=== PATIENT | female | born 2005 | race Caucasian/White ===

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

== ENCOUNTER 2025-01-16 12:00 | Emergency (ER) | payer MEDICAID, SELFPAY ==
--- OUTSIDE RECORDS SUMMARY | 2025-01-16 12:03 | XMS_ITS | Encounter Summary ---
Author Organization [facility] Address [address] [place] [address] Phone Care Team Providers Care Soil Chemist Name Role Phone Provider, None Primary Care Provider Unavailabl e Encounter Details Date Type Department Care Team (Late st Contact Info) Description 11/11/2024 Lab Requisition [facility] [address] [place] [address] Carlos Eduardo Tomlin, PAC [address] [place] [address] Encounter for pre-employment examination Social History Tobacco Use Types Packs/Day Years Used Date Smoking Tobacco: Never Assessed Comments Unknown Sex and Gender Information Value Date Recorded Sex Assigned at Not on file Legal Sex Female 10:57 PM CDT Gender Identity Not on file Sexual Orientation Not on file documented as of this encounter Plan of Treatment Not on file documented as of this encounter Procedures Procedure Name Priority Date/Time Associated Diagnosis Comments QUANTIFERON-TB GOLD PLUS Routine 11/11/2024 10:00 AM [employer] Encounter for pre-employment examination documented in this encounter Results * QUANTIFERON-TB GOLD PLUS (11/11/2024 10:00 AM 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 [employer]) NIL CONTROL 0.00 <8.01 IU/mL 11/13/2024 11:34 AM INSPECTOR [employer]SE [facility] TB ANTIGEN 1 0.00 <0.35 IU/mL 11/13/2024 11:34 AM INSPECTOR [employer]SE [facility] TB ANTIGEN 2 0.00 <0.35 IU/mL 11/13/2024 11:34 AM [facility] MITOGEN CONTROL 10.00 >0.49 IU/mL 11/13/20 11:34 AM [facility] INTEPRETATION TB NEGATIVE NEGATIVE, NEGATIVE (TB antigen response less than 25% of internal negative control value) 11/13/2024 11:34 AM [facility] Comment:No immune response t o Mycobacterium tuberculosis antigens was noted. M. tuberculosis infection unlikely. Blood No Phlebotomy Charged / Unknown 11/11/2024 10:00 AM INS[employer]OR [employer] 11/11/2024 2:57 PM [employer] Narrative [facility] - 11/13/2024 11:34 AM INSPECTOR [employer] A POSITIVE QUANTIFERON-TB GOLD PLUS RESULT SHOULD NOT BE THE SOLE OR DEFINITIVE BASIS FOR DETERMINING INFECTION WITH M.TUBERCULOSIS. Diagnosing or excluding tuberculosis disease, and assessing the probability of LTBI, requires a combination of epidemiological, historical, medical and diagnostic findings (e.g., acid fast bacilli (AFB) smear and culture, chest xray) that should be taken into account when interpreting QFT-Plus results. Furthermore, the magnitude of the measured gamma interferon level cannot be correlated to stage or degree of infection, level of immune responsiveness, or likelihood for progression to active disease. The Nil control adjusts for background (e.g., elevated levels of circulating gamma interferon or presence of heterophile antibodies). The Mitogen control serves as an internal positive control and verifies each specimen tested can produce a gamma interferon response. Low mitogen may occur with insufficient lymphocytes, reduced lymphocyte activity due to improper specimen handling, filling/mixing of the mitogen tube, or inability of the patient's lymphocytes to generate gamma interferon. Infection with other Mycobacteria, including M. kansasii, M. szulgai, and M. marinum, may cause false positive results. A negative QuantiFERON-TB Gold Plus result does not preclude the possibility of M. tuberculosis infection or tuberculosis disease: false negative results can be due to incorrect blood sample collection/ improper handling of the specimen, stage of infection (e.g., specimen obtained prior to the development of cellular immune response), co-morbid conditions which affect immune function, or other individual immunological factors. The minimum number of lymphocytes required for a reliable test has not been established and may also be variable. Diagnostic testing for Mycobacterium tuberculosis using Interferon Gamma Release Assays should follow applicable published guidelines, including when testing in populations such as children, women, and HIV-infected or otherwise immunocompromised individuals. https://www.cdc.gov/tb/publications/guidelines/testing.htm us Carlos Eduardo Tomlin [facility] IMMUNOLOGY ORDERABLES Final Result [facility] [address] [place] [address], documented in this encounter Visit Diagnoses Diagnosis Encounter for pre-employment examination Health examination of defined subpopulation documented in this encounter Care Teams Soil Chemist Relationship Specialty Start Date End Date Provider, None [place] PCP - General 11/11/24 documented as of this encounter
--- OUTSIDE RECORDS SUMMARY | 2025-01-16 12:03 | XMS_ITS | Clinical Summary ---
Author Organization [facility] Address [address] [place] [address] Phone Care Team Providers Care Resort Host Name Role Phone Provider, None Primary Care Provider Unavailabl e Allergies No known active allergies Medications predniSONE (DELTASONE) 50 MG Tablet Take 1 Tablet by mouth daily. 5 Tablet 5 Active albuterol 108 (90 Base) MCG/ACT Aerosol Solution take 2 Puffs by inhalation every 6 hours as needed for Wheezing. 8 g 5 Active ondansetron (ZOFRAN-ODT) 4 MG TABLET DISPERSIBLEInd ications:Nause a and Vomiting Take 1 Tablet by mouth every 8 hours as needed for Nausea - 1st line. Indications: Nausea and Vomiting 10 Tablet 5 Active albuterol (PROVENTIL, VENTOLIN) (2.5 MG/3ML) 0.083% Nebulizer Soln 3 mL by Nebulization route every 6 hours as needed for Wheezing or Shortness of Breath for up to 30 days. 75 mL 5 01/15/20 25 Encounters Date Type Department Care Team Description 12/16/2024 8:12 PM SAXOPHONE ASSEMBLER - 12/16/2024 9:32 PM SAXOPHONE ASSEMBLER [facility] [address] [place] [address] Erica Rosa, MONUMENTAL STONEMASON, SCHOOL LEADER Anxiety Discharge Disposition: Discharged to home or Selfcare 12/16/2024 Travel 11/11/2024 Lab Requisition [facility] [address] [place] [address] Carlos Eduardo Tomlin, PAC Encounter for pre-employment examination 11/11/2024 Travel from Last 3 Months Social History Tobacco Use Types Packs/Day Years Used Date Smoking Tobacco: Unknown Smokeless Tobacco: Never Tobacco Cessation:Counseling Given: Not Answered Comments Unknown Sex and Gender Information Value Date Recorded Sex Assigned at Not on file Legal Sex Female 10:57 PM CDT Gender Identity Not on file Sexual Orientation Not on file Last Filed Vital Signs Vital Sign Reading Time Taken Comments Blood Pressure 128/101 12/16/2024 9:31 PM SAXOPHONE ASSEMBLER Pulse 104 12/16/2024 9:31 PM SAXOPHONE ASSEMBLER Temperature 36.8 C (98.3 F) 12/16/2024 8:35 PM SAXOPHONE ASSEMBLER Respiratory Rate 16 12/16/2024 9:31 PM SAXOPHONE ASSEMBLER Oxygen Saturation 99% 12/16/2024 9:31 PM SAXOPHONE ASSEMBLER Inhaled Oxygen Concentration - - Weight - - Height 160 cm (5' 3 ) 12/16/2024 8:16 PM SAXOPHONE ASSEMBLER Body Mass Index - - Plan of Treatment Health Maintenance Due Date Last Done Comments Hepatitis C Virus (HCV) Screening 2005 Meningococcal B Immunization (1 of 2 - Standard) 2021 Influenza Immunization (#1) 2024 12/0 07/2023, 10/04/2021, 09/14/2008 SARS-COV-2 Immunization ( season) 2024 12/26/2021, 05/30/2021, 05/04/2021 Respiratory Syncytial Virus (RSV) Immunization (Adult) (1 - 1-dose 75+ series) 2080 Pneumococcal Immunization Combined Aged Out 07/25/2006, 04/11/2006, 02/22/2006 No longer eligible based on patient's age to complete this topic Hepatitis A Immunization Discontinued 03/22/2010, 09/01 Measles Mumps Rubella (MMR) Immunization Discontinued 03/22/2010, 09/14/2008 Polio (IPV) Immunization Discontinued 010, 07/25/2006, 04/11/2006, Additional history exists Varicella Immunization Discontinued 03/22/2010, 2007 Meningococcal Immunization (ACWY) Aged Out 07/15/2017 No longer eligible based on patient's age to complete this topic Hepatitis B Immunization Completed 021, 04/11/2006, 02/22/2006, Additional history exists Human Papillomavirus (HPV) Immunization Completed 12/22/2020, 07/15/2017 DTaP/Tdap/Td Immunization Discontinued 2022, 07/15/2017, 03/22/2010, Additional history exists TdaP Immunization Completed 11/04/2023, 07/15/2017 Rotavirus Immunization Aged Out No lo nger eligible based on patient's age to complete this topic Procedures Procedure Name Priority Date/Time Associated Diagnosis Comments AEROSOL NEBULIZER-INITIAL STAT 12/16/2024 8:27 PM SAXOPHONE ASSEMBLER XR CHEST SINGLE VIEW PORTABLE STAT 12/16/2024 8:23 PM SAXOPHONE ASSEMBLER QUANTIFERON-TB GOLD PLUS Routine 11/11/2024 10:00 AM SAXOPHONE ASSEMBLER Encounter for pre-employment examination from Last 3 Months Results * XR CHEST SINGLE VIEW PORTABLE (12/16/2024 8:23 PM SAXOPHONE ASSEMBLER) Anatomical Region Laterality Modality Chest N/A Digital Radiogra phy 12/16/2024 8:42 PM SAXOPHONE ASSEMBLER Impressions 12/16/2024 8:45 PM SAXOPHONE ASSEMBLER IMPRESSION: No acute cardiopulmonary abnormality. 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 pt also report productive cough and wheezing. TECHNIQUE: Single radiographic view(s) of the chest. COMPARISON: 06/14/2011 FINDINGS: LUNGS: Allowing for overlying soft tissues, the lungs appear grossly clear. No consolidation or effusion is seen. HEART/MEDIASTINUM: Cardiac silhouette normal in size. Mediastinal and hilar contours appear normal. LINES/TUBES: None. BONES: No acute osseous abnormality. THIS IS AN ELECTRONICALLY VERIFIED FINAL REPORT 12/16/2024 8:42 PM - Electronically signed by Faustino Butler M.D. 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 pt also report productive cough and wheezing. TECHNIQUE: Single radiographic view(s) of the chest. COMPARISON: 06/14/2011 FINDINGS: LUNGS: Allowing for overlying soft tissues, the lungs appear grossly clear. No consolidation or effusion is seen. HEART/MEDIASTINUM: Cardiac silhouette normal in size. Mediastinal and hilar contours appear normal. LINES/TUBES: None. BONES: No acute osseous abnormality. THIS IS AN ELECTRONICALLY VERIFIED FINAL REPORT 12/16/2024 8:42 PM - Electronically signed by Faustino Butler M.D. KH: XIMENA Report ID: [id number] Reading Location: [id number] IMPRESSION: No acute cardiopulmonary abnormality. Erica Rosa MONUMENTAL STONEMASON, SCHOOL LEADER IMG DIAGNOSTIC ORDERA BLES Final Result * QUANTIFERON-TB GOLD PLUS (11/11/2024 10:00 AM SAXOPHONE ASSEMBLER) NIL CONTROL 0.00 <8.01 IU/mL 11/13/2024 11:34 AM SAXOPHONE ASSEMBLER [facility] TB ANTIGEN 1 0.00 <0.35 IU/mL 11/13/2024 11:34 AM [facility] TB ANTIGEN 2 0.00 <0.35 IU/mL 11/13/2024 11:34 AM [facility] MITOGEN CONTROL 10.00 >0.49 IU/mL 11/13/20 11:34 AM SAXOPHONE ASSEMBLER [facility] INTEPRETATION TB NEGATIVE NEGATIVE, NEGATIVE (TB antigen response less than 25% of internal negative control value) 11/13/2024 11:34 AM [facility] Comment:No immune response t o Mycobacterium tuberculosis antigens was noted. M. tuberculosis infection unlikely. Blood No Phlebotomy Charged / Unknown 11/11/2024 10:00 AM SAXOPHONE ASSEMBLER 11/11/2024 2:57 PM SAXOPHONE ASSEMBLER Narrative [facility] - 11/13/2024 11:34 AM SAXOPHONE ASSEMBLER A POSITIVE QUANTIFERON-TB GOLD PLUS RESULT SHOULD [...] and HIV-infected or otherwise immunocompromised individuals. https://www.cdc.gov/tb/publications/guidelines/testing.htm Carlos Eduardo Tomlin [facility] IMMUNOLOGY ORDERABLES Final Result [facility] [address] [place] [address], [place] from Last 3 Months Insurance MEDICAID [place] * Guarantor: [facility] Account Type Relation to Patient Date of Phone Billing Address Institutional Other [address] [place] [address] Care Teams Resort Host Relationship Specialty Start Date End Date Provider, None [place] PCP - General 11/11/24
[2025-01-16 12:25] VITALS: BP 107/66; PULSE 79; RESP 20; TEMP 37.3; O2SAT 100
--- NOTE | 2025-01-16 14:25 | ED.GENADULT ---
HPI - General Adult General Chief complaint: Upper Respiratory Infection Stated complaint: Cough, Sore Throat Source: patient Mode of arrival: ambulatory Limitations: no limitations History of Present Illness HPI narrative: Patient presents for evaluation of sick symptoms since yesterday. Symptoms include hot flashes, chills, sore throat, generalized body aches, nausea and vomiting. She denies any shortness of breath or diarrhea. She indicates she has been exposed to influenza at work. She tried taking some nbyu-qfa-kuumavy cough cold medicine with minimal improvement thereafter. Related Data Allergies Allergy/AdvReac Type Severity Reaction Status Date / Time No Known Allergies Allergy Verified 01/16/25 12:55 Review of Systems Review of Systems: CONSTITUTIONAL: Reports hot flashes and chills. EYES: Denies visual changes, redness, or discharge. ENT: Reports sore throat and bilateral otalgia. Denies rhinorrhea, or congestion CARDIOVASCULAR: Denies chest pain, palpitations, or edema. RESPIRATORY: Reports cough. Denies shortness of breath. GASTROINTESTINAL: Reports nausea and vomiting. GENITOURINARY: Denies dysuria or hematuria. SKIN: Denies rash or itching. MUSCULOSKELETAL: Reports generalized body aches. NEUROLOGIC: Reports headache. Numbness, dizziness, or weakness. PSYCHIATRIC: Denies anxiety or depression. PMFSH Past Medical History Medical History No pertinent past medical history Surgical History Surgical History No pertinent past surgical history Family History Family History Mother Family history non-contributory Social History Social History Gender identity (if verbalized by the patient): Female Spiritual care concerns: No Exam Narrative: GENERAL: Well-appearing, well-nourished, and in no acute distress. HEAD: Normocephalic, atraumatic. EYES: PERRLA and EOMI. ENT: Nares clear, no rhinorrhea or epistaxis. Mucous membranes moist. Oropharynx without tonsillar hypertrophy exudate or other lesions. Bilateral TMs are erythematous NECK: Supple. No adenopathy or masses. No carotid bruits or JVD CHEST: Clear to auscultation. No respiratory distress. No wheezes rales or rhonchi HEART: Regular rate and rhythm. No murmur heard. Normal peripheral pulses. ABDOMEN: Soft, nontender, nondistended, normal active bowel sounds. EXTREMITIES: Normal range of motion. No edema. SKIN: Warm, dry, no rash. NEURO: No focal deficits. Alert and oriented x3. PSYCH: Normal mood and affect. Course Course Emergency Course: This is a 19-year-old female presented for evaluation of sick symptoms. Influenza A positive. Will treat with Tamiflu. She also has evidence of otitis media on exam. She indicates she has had ear infections in the past when she has had other infections. Will tx with augmentin. Increase hydration. OTC agents for symptom management. Follow up with primary provider. Go to the ER for worsening symptoms. Patient in agreement with plan of care. Level of Care: Express Care Visit Vital Signs Vital signs: Vital Signs Temperature 37.3 C 01/16/25 12: Pulse Rate 79 01/16/25 12:25 Respiratory Rate 20 01/16/25 12:25 Blood Pressure 107/66 01/16/25 12:25 Pulse Oximetry 100 01/16/25 12:25 Oxygen Delivery Room Air 01/16/25 12: Temperature 37.3 C 01/16/25 12:25 Pulse Rate 79 01/16/25 12:25 Respiratory Rate 20 01/16/25 12:25 Blood Pressure 107/66 01/16/25 12: Pulse Oximetry 100 01/16/25 12:25 Oxygen Delivery Room Air 01/16/25 12:25 Medical Decision Making Vital Signs Vital Signs: Vital Signs Temperature 37.3 C 01/16/25 12:25 Pulse Rate 79 01/16/25 12:25 Respiratory Rate 20 01/16/25 12:25 Blood Pressure 107/66 01/16/25 12:25 Pulse Oximetry 100 01/16/25 12:25 Oxygen Delivery Room Air 01/16/25 12:25 Temperature 37.3 C 01/16/25 12:25 Pulse Rate 79 01/16/25 12:25 Respiratory Rate 20 01/16/25 12:25 Blood Pressure 107/66 01/16/25 12:25 Pulse Oximetry 100 01/16/25 12:25 Oxygen Delivery Room Air 01/16/25 12:25 Discharge Plan Discharge Clinical Impression: Influenza A, Otitis media Patient Disposition: Home, Self-Care Condition: Stable Instructions: Antibiotic Form, Influenza (ED), Ear Infection (GEN) Patient Language: Czech Prescriptions: New oseltamivir [Tamiflu] 75 mg capsule 75 mg PO Q12H 5 Days Qty: 10 0RF amoxicillin-pot clavulanate 875-125 mg tablet 1 tablet PO Q12H Qty: 20 0RF Follow-up/Referrals: Ki Arthur MD [Physician] - Stand Alone Forms: Work/School Release IP Time of Disposition: 13:54
[2025-01-16 20:07] LABS: EDCOVIDSCREEN Negative (Negative); EDINFLUASCREEN Positive (Negative); EDINFLUBSCREEN Negative (Negative)
== END 2025-01-16 13:58 | disposition home or self-care (01) ==
PROVIDERS: Emergency Provider Nurse Practitioner
DX: J10.1 Influenza due to other identified influenza virus with other respiratory manifestations (principal); H66.90 Otitis media, unspecified, unspecified ear; Z20.822 Contact with and (suspected) exposure to COVID-19
CPT/HCPCS: 87426; 87804; 99213; G0463

== ENCOUNTER 2025-01-26 10:07 | Emergency (ER) | payer MEDICAID, SELFPAY ==
[2025-01-26 10:15] VITALS: BP 127/67; PULSE 94; RESP 20; TEMP 36.7; O2SAT 100
[2025-01-26 10:27] LABS: EDSTREPNEGPOS1 Positive (Negative)
--- NOTE | 2025-01-26 10:55 | ED_ITS ---
HPI - General Adult General Chief complaint: Upper Respiratory Infection Stated complaint: Vomiting/Shortness of Breath/Sore Throat Source: patient Mode of arrival: ambulatory Limitations: no limitations History of Present Illness HPI narrative: Pt presents for evaluation of sick symptoms that started this morning. She reports sore throat, fever, chills, nausea and vomiting. She denies significant cough or shortness of breath. No recent sick contacts to her knowledge. She is not taking any medication to assist with her symptoms. I saw her here this month and diagnosed her with influenza and otitis media. She is still taking augmentin. Related Data Allergies Allergy/AdvReac Type Severity Reaction Status Date / Time No Known Allergies Allergy Verified 01/26/25 10:17 Review of Systems Review of Systems: CONSTITUTIONAL: Reports fever and chills. EYES: Denies visual changes, redness, or discharge. ENT: Reports sore throat. Denies rhinorrhea, congestion, or otalgia. CARDIOVASCULAR: Denies chest pain, palpitations, or edema. RESPIRATORY: Denies cough or dyspnea. GASTROINTESTINAL: Reports nausea, vomiting. Denies diarrhea. GENITOURINARY: Denies dysuria or hematuria. SKIN: Denies rash or itching. MUSCULOSKELETAL: Denies back pain, joint pain, or myalgia. NEUROLOGIC: Denies headache, numbness, dizziness, or weakness. PSYCHIATRIC: Denies anxiety or depression. [facility] Past Medical History Medical History No pertinent past medical history Surgical History Surgical History No pertinent past surgical history Family History Family History Mother Family history non-contributory Social History Social History Gender identity (if verbalized by the patient): Female Spiritual care concerns: No Course Course Emergency Course: This is a 19 year old female who presented for evaluation of sick symptoms. Her strep is positive, despite being on augmentin. Will dc with cephalexin and zofran. Increase hydration. [id number]-[id number] agents for symptom management. Follow up with primary provider. Go to the ER for worsening symptoms. Patient in agreement with plan of care. Level of Care: Express Care Visit Vital Signs Vital signs: Vital Signs Temperature 36.7 C 01/26/25 10:15 Pulse Rate 94 01/26/25 10:15 Respiratory Rate 20 01/26/25 10:15 Blood Pressure 127/67 01/26/25 10:15 Pulse Oximetry 100 01/26/25 10:15 Oxygen Delivery Room Air 01/26/25 10:15 Temperature 36.7 C 01/26/25 10:15 Pulse Rate 94 01/26/25 10:15 Respiratory Rate 20 01/26/25 10:15 Blood Pressure 127/67 01/26/25 10:15 Pulse Oximetry 100 01/26/25 10:15 Oxygen Delivery Room Air 01/26/25 10:15 Medical Decision Making Vital Signs Vital Signs: Vital Signs Temperature 36.7 C 01/26/25 10:15 Pulse Rate 94 01/26/25 10:15 Respiratory Rate 20 01/26/25 10:15 Blood Pressure 127/67 01/26/25 10:15 Pulse Oximetry 100 01/26/25 10:15 Oxygen Delivery Room Air 01/26/25 10:15 Temperature 36.7 C 01/26/25 10:15 Pulse Rate 94 01/26/25 10:15 Respiratory Rate 20 01/26/25 10:15 Blood Pressure 127/67 01/26/25 10:15 Pulse Oximetry 100 01/26/25 10:15 Oxygen Delivery Room Air 01/26/25 10:15 Lab Data Labs: Lab Results 01/26/25 Range/Units 10:26 POC Grp A Strep Screen Positive (Negative) Discharge Plan Discharge Clinical Impression: Strep throat Patient Disposition: Home, Self-Care Condition: Stable Instructions: Antibiotic Form, Strep Throat (ED) Patient Language: Chinese Prescriptions: New cephalexin 500 mg tablet 500 mg PO BID 10 Days Qty: 20 0RF ondansetron 4 mg tablet,disintegrating 4 mg PO Q6H PRN (Reason: nausea and vomiting) Qty: 15 0RF Follow-up/Referrals: Carol Saldana DO [Physician] - Stand Alone Forms: Work/School Release IP Time of Disposition: 10:54
--- OUTSIDE RECORDS SUMMARY | 2025-01-26 11:36 | XMS_ITS | Clinical Summary ---
Author Organization [facility] Address [address] [place] [address] Phone Care Team Providers Care Beta Tester Name Role Phone Provider, None Primary Care [...] Department Care Team Description 12/16/2024 8:12 PM STARS SPECIALIST - 12/16/2024 9:32 PM STARS SPECIALIST [facility] [address] [place] [address] Erica Rosa, VICE CHAIRMAN, SOLVENT PLANT TREATER Anxiety Discharge Disposition: Discharged to home or Selfcare 12/16/2024 Travel 11/11/2024 Lab [facility]quisition [facility] [address] [place] [address] Carlos Eduardo Tomlin, PAC Encounter for pre-employment [...] Comments Blood Pressure 128/101 12/16/2024 9:31 PM STARS SPECIALIST Pulse 104 12/16/2024 9:31 PM STARS SPECIALIST Temperature 36.8 C (98.3 F) 12/16/2024 8:35 PM STARS SPECIALIST Respiratory Rate 16 12/16/2024 9:31 PM STARS SPECIALIST Oxygen Saturation 99% 12/16/2024 9:31 PM STARS SPECIALIST Inhaled Oxygen Concentration - - Weight - - Height 160 cm (5' 3 ) 12/16/2024 8:16 PM STARS SPECIALIST Body Mass Index - - Plan of [...] Comments AEROSOL NEBULIZER-INITIAL STAT 12/16/2024 8:27 PM STARS SPECIALIST XR CHEST SINGLE VIEW PORTABLE STAT 12/16/2024 8:23 PM STARS SPECIALIST QUANTIFERON-TB GOLD PLUS Routine 11/11/2024 10:00 AM STARS SPECIALIST Encounter for pre-employment examination from Last 3 Months Results * XR CHEST SINGLE VIEW PORTABLE (12/16/2024 8:23 PM STARS SPECIALIST) Anatomical Region Laterality Modality Chest N/A Digital Radiogra phy 12/16/2024 8:42 PM STARS SPECIALIST Impressions 12/16/2024 8:45 PM STARS SPECIALIST IMPRESSION: No acute cardiopulmonary abnormality. 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 pt also report productive cough and wheezing. [...] Faustino Butler M.D. 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 pt also report productive cough and wheezing. [...] Faustino Butler M.D. KH: XIMENA Report ID: [id number] Reading Location: [id number] IMPRESSION: No acute cardiopulmonary abnormality. Erica Rosa VICE CHAIRMAN, SOLVENT PLANT TREATER IMG DIAGNOSTIC ORDERA BLES Final Result * QUANTIFERON-TB GOLD PLUS (11/11/2024 10:00 AM STARS SPECIALIST) NIL CONTROL 0.00 <8.01 IU/mL 11/13/2024 11:34 AM STARS SPECIALIST [facility] TB ANTIGEN 1 0.00 <0.35 IU/mL 11/13/2024 11:34 AM [facility] TB ANTIGEN 2 0.00 <0.35 IU/mL 11/13/2024 11:34 AM [facility] MITOGEN CONTROL 10.00 >0.49 IU/mL 11/13/20 11:34 AM STARS SPECIALIST [facility] INTEPRETATION TB NEGATIVE NEGATIVE, NEGATIVE (TB antigen response less than 25% of internal negative control value) 11/13/2024 11:34 AM [facility] Comment:No immune response t o Mycobacterium tuberculosis antigens was noted. M. tuberculosis infection unlikely. Blood No Phlebotomy Charged / Unknown 11/11/2024 10:00 AM STARS SPECIALIST 11/11/2024 2:57 PM STARS SPECIALIST Narrative [facility] - 11/13/2024 11:34 AM STARS SPECIALIST A POSITIVE QUANTIFERON-TB GOLD PLUS RESULT SHOULD [...] otherwise immunocompromised individuals. https://www.cdc.gov/tb/publications/guidelines/testing.htm Carlos Eduardo Tomlin [facility] IMMUNOLOGY ORDERABLES Final Result [facility] [address] [place] [address], [place] from Last 3 Months Insurance MEDICAID [place] * Guarantor: [facility] Account Type Relation to Patient Date of Phone Billing Address Institutional Other [address] [place] [address] Care Teams Beta Tester Relationship Specialty Start Date End Date Provider, None [place] PCP - General 11/11/24
--- OUTSIDE RECORDS SUMMARY | 2025-01-26 11:36 | XMS_ITS | Encounter Summary ---
Author Organization [facility] Address [address] [place] [address] Phone Care Team Providers Care Chemistry Quality Control Analyst Name Role Phone Provider, None Primary Care Provider Unavailabl e Encounter Details Date Type Department Care Team (Late st Contact Info) Description 11/11/2024 Lab Requisition [facility] Laboratory Services [address] [place] [address] Carlos Eduardo Tomlin, PAC [address] [place] [address] Encounter for pre-employment examination Social [...] QUANTIFERON-TB GOLD PLUS Routine 11/11/2024 10:00 AM PRESS LEADER Encounter for pre-employment examination documented in this encounter Results * QUANTIFERON-TB GOLD PLUS (11/11/2024 10:00 AM PRESS LEADER) NIL CONTROL 0.00 <8.01 IU/mL 11/13/2024 11:34 AM PRESS LEADER [facility] TB ANTIGEN 1 0.00 <0.35 IU/mL 11/13/2024 11:34 AM PRESS LEADER [facility] TB ANTIGEN 2 0.00 <0.35 IU/mL 11/13/2024 11:34 AM [facility] MITOGEN CONTROL 10.00 >0.49 IU/mL 11/13/20 11:34 AM [facility] INTEPRETATION TB NEGATIVE NEGATIVE, NEGATIVE (TB antigen response less than 25% of internal negative control value) 11/13/2024 11:34 AM [facility] Comment:No immune response t o Mycobacterium tuberculosis antigens was noted. M. tuberculosis infection unlikely. Blood No Phlebotomy Charged / Unknown 11/11/2024 10:00 AM PRESS LEADER 11/11/2024 2:57 PM PRESS LEADER Narrative [facility] - 11/13/2024 11:34 AM PRESS LEADER A POSITIVE QUANTIFERON-TB GOLD PLUS RESULT SHOULD [...] immunocompromised individuals. https://www.cdc.gov/tb/publications/guidelines/testing.htm [place] Carlos Eduardo Tomlin [facility] IMMUNOLOGY ORDERABLES Final Result [facility] [address] [place] [address], documented in this encounter Visit Diagnoses Diagnosis Encounter for pre-employment examination Health examination of defined subpopulation documented in this encounter Care Teams Chemistry Quality Control Analyst Relationship Specialty Start Date End Date Provider, None [place] PCP - General 11/11/24 documented as of this encounter
== END 2025-01-26 10:58 | disposition home or self-care (01) ==
PROVIDERS: Emergency Provider Nurse Practitioner
DX: J02.0 Streptococcal pharyngitis (principal)
CPT/HCPCS: 87880; 99213; G0463